=== PATIENT | female | born 1990 | race Caucasian/White ===

== ENCOUNTER 2017-01-05 12:42 | Emergency (ER) | payer SELFPAY ==
[~2017-01-05] VITALS: Ht 157.5 cm; Wt 68.0 kg
--- NOTE | 2017-01-05 12:47 | Emergency Room Report ---
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 Clinical Suspician of Infection? Mental Status: Sepsis Risk: Have you (or family members/close friends) recently traveled outside the [facility]? If Yes, where/when: Have you had exposure to infectious disease within the past month? TB? Other? Specify: Source patient, RN notes reviewed, EMS Exam Limitations no limitations Comment Pt found unresponsive by her Dad this morning and he did rescue breathing and by the time EMS arrived, she was responsive . They brought her to the ED and she refused an IV and she refused Narcan but says she took a $20 dose of heroin. She has been using drugs since she was 14 years old. Started with ETOH and then advanced to pain meds, methamphetamines and now IV heroin. She has had surgery on the left forearm because of infections from previous injections and she is also Hepatitis C positive and has not been treated. She says she wants to be admitted to [facility]. She has been in rehab twice in the past...once in [place] for about a month and once in [place] for about 7 months. She has an older brother and 2 older sisters who are drug free and she says she lives wherever she can find a place to lay her head. She is very drowsy but does answer questions appropriately and is willing to have blood and urine testing Cardiac Chest Pain Chest pain indicative of cardiac No ALLERGIES Coded Allergies: Penicillins (01/05/17) Home Medications Reported Medications No Known Home Medications History Medical History General Angina: No CT: No Hypertension? No Hyperlipidemia? No CHF? No COPD? No Asthma? No CVA? No Seizures? No Diabetes? No GB Disease: No MRSA? No TB? No Cancer? No Immunization Hx DT/Tetanus NOT SURE Surgical Hx Previous Surgery?Y L FOREARM ABCESS Social History Smoking Hx Packs/day < 1 Pack Alcohol Alcohol: Yes Review of Systems All Other Systems Reviewed and Negative Constitutional see HPI Psychiatric/Neurological see HPI Physical Exam Vital Signs Vital Signs Date Time Temp Pulse Resp B/P Pulse O2 O2 Flow FiO2 Ox Delivery Rate 01/05 1504 81 20 121/64 94 01/05 1426 79 20 127/72 97 01/05 1242 98.9 94 20 149/78 94 General Appearance no apparent distress, lethargic, drowsy but arouses and answers questions appropriately Respiratory Status No: respiratory distress. Lung Sounds bilateral: normal breath sounds. 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 No Results/Orders Laboratory Tests 01/05/17 1330: WBC 7.4, RBC 4.24, Hgb 12.9, Hct 38.7, MCV 91.3, RDW 13.4, Plt Count 245, MPV 8.6, Gran % 75.1, Gran # 5.6, Lymphocytes % 17.9, Monocytes % 4.3, Eosinophils % 2.2, Basophils % 0.5, Lymphocytes # 1.3, Monocytes # 0.3, Eosinophils # 0.2, Basophils # 0.0, PUBS MCHC 33.2, MCH 30.3 01/05/17 1310: Opiates Screen POSITIVE H, Urine Methadone Screen NEGATIVE, Barbiturates NEGATIVE, Phencyclidine Screen NEGATIVE, Amphetamines Screen NEGATIVE, Benzodiazepines Screen NEGATIVE, Cocaine Screen POSITIVE H, Marijuana (THC) Screen POSITIVE H, Urine Color YELLOW, Urine Appearance TURBID, Urine pH 7.0, Ur Specific [place] 1.025, Urine Protein 3+ H, Urine Ketones NEGATIVE, Urine Blood 3+ H, Urine Nitrate NEGATIVE, Urine Bilirubin NEGATIVE, Urine Urobilinogen 0.2, Ur Leukocyte Esterase NEGATIVE, Urine RBC 5-10, Urine WBC 5-10 , Ur Squamous Epith Cells 10-20, Urine Bacteria 4+, Urine Glucose NEGATIVE Current Medication Orders Sig/Je Start time Last Medication Dose Route Stop Time Status Admin Sodium Chloride 1,000 ML .STK-MED ONE 01/05 1502 DC IV Ondansetron HCl 4 MG ONCE ONE 01/05 1415 DC 01/05 IV 01/05 1416 1403 Ondansetron HCl 0 .STK-MED ONE 01/05 1357 DC .ROUTE Sodium Chloride 1,000 ML .STK-MED ONE 01/05 1355 DC IV Sodium Chloride 1,000 ML .Q1H1M 01/05 1330 DC 01/05 IV 01/05 1430 1401 Sodium Chloride 10 ML PRN PRN 01/05 1330 AC IV 01/06 1318 Naloxone HCl 2 MG ONCE ONE 01/05 1315 DC IV 01/05 1316 Sodium Chloride 10 ML PRN PRN 01/05 1315 AC 01/05 IV 01/06 1314 1402 Sodium Chloride 1,000 ML .Q1H1M 01/05 1315 DC 01/05 IV 01/05 1415 1503 Sodium Chloride 10 ML PRN PRN 01/05 1315 AC IV 01/06 1315 Orders Procedure Date/time Status IV SALINE LOCK 01/05 1318 Active URINALYSIS/COMPLETE 01/05 131 Complete SALICYLATE 01/05 131 Active URINE 01/05 131 Complete DRUG ABUSE SCREEN (10) 01/05 131 Complete CBC WITH AUTO DIFF 01/05 1318 Complete CHEM 12 PROFILE 01/05 131 Active ALCOHOL 01/05 131 Active Acetaminophen 01/05 131 Active CULTURE, URINE 01/05 131 Active Departure Departure Time of Disposition 1549 Disposition DC Home or Self Care(routine) Clinical Impression Primary Impression: Opioid abuse Secondary Impressions: Intrauterine Condition STABLE Referrals NO REFERRAL Patient Instructions DI for Opioid Addiction, Opioid Addiction Additional Instructions Pt being released from this facility to go to [facility] in [place] for further evaluation and hopefully placement Discharge Counseling Counseled pt/family regarding diagnosis, test results, home care, follow up needs Prescriptions Current Visit Scripts No Known Home Medications ED Critical Care Critical Care No If Critical Care minutes are documented, the time involved in the performance of seperately reportable procedures was not counted toward critical care time documented. I directly delivered medical care to this critically ill and/or injured patient. Timely evaluation and treatment was necessary to address the significant organ system(s) dysfunction present in this patient. at 1550
--- NOTE | 2017-01-05 12:47 | Emergency Room Report ---
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 Clinical Suspician of Infection? Mental Status: Sepsis Risk: Have you (or family members/close friends) recently traveled outside the [facility]? If Yes, where/when: Have you had exposure to infectious disease within the past month? TB? Other? Specify: Source patient, RN notes reviewed, EMS Exam Limitations no limitations Comment Pt found unresponsive by her Dad this morning and he did rescue breathing and by the time EMS arrived, she was responsive . They brought her to the ED and she refused an IV and she refused Narcan but says she took a $20 dose of heroin. She has been using drugs since she was 14 years old. Started with ETOH and then advanced to pain meds, methamphetamines and now IV heroin. She has had surgery on the left forearm because of infections from previous injections and she is also Hepatitis C positive and has not been treated. She says she wants to be admitted to [facility]. She has been in rehab twice in the past...once in [place] for about a month and once in [place] for about 7 months. She has an older brother and 2 older sisters who are drug free and she says she lives wherever she can find a place to lay her head. She is very drowsy but does answer questions appropriately and is willing to have blood and urine testing Cardiac Chest Pain Chest pain indicative of cardiac No ALLERGIES Coded Allergies: Penicillins (01/05/17) Home Medications Reported Medications No Known Home Medications History Medical History General Angina: No ME: No Hypertension? No Hyperlipidemia? No CHF? No COPD? No Asthma? No CVA? No Seizures? No Diabetes? No GB Disease: No MRSA? No TB? No Cancer? No Immunization Hx DT/Tetanus NOT SURE Surgical Hx Previous Surgery?Y L FOREARM ABCESS Social History Smoking Hx Packs/day < 1 Pack Alcohol Alcohol: Yes Review of Systems All Other Systems Reviewed and Negative Constitutional see HPI Psychiatric/Neurological see HPI Physical Exam Vital Signs Vital Signs Date Time Temp Pulse Resp B/P Pulse O2 O2 Flow FiO2 Ox Delivery Rate 01/05 1504 81 20 121/64 94 01/05 1426 79 20 127/72 97 01/05 1242 98.9 94 20 149/78 94 General Appearance no apparent distress, lethargic, drowsy but arouses and answers questions appropriately Respiratory Status No: respiratory distress. Lung Sounds bilateral: normal breath sounds. 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 No Results/Orders Laboratory Tests 01/05/17 1330: WBC 7.4, RBC 4.24, Hgb 12.9, Hct 38.7, MCV 91.3, RDW 13.4, Plt Count 245, MPV 8.6, Gran % 75.1, Gran # 5.6, Lymphocytes % 17.9, Monocytes % 4.3, Eosinophils % 2.2, Basophils % 0.5, Lymphocytes # 1.3, Monocytes # 0.3, Eosinophils # 0.2, Basophils # 0.0, PUBS MCHC 33.2, MCH 30.3 01/05/17 1310: Opiates Screen POSITIVE H, Urine Methadone Screen NEGATIVE, Barbiturates NEGATIVE, Phencyclidine Screen NEGATIVE, Amphetamines Screen NEGATIVE, Benzodiazepines Screen NEGATIVE, Cocaine Screen POSITIVE H, Marijuana (THC) Screen POSITIVE H, Urine Color YELLOW, Urine Appearance TURBID, Urine pH 7.0, Ur Specific [place] 1.025, Urine Protein 3+ H, Urine Ketones NEGATIVE, Urine Blood 3+ H, Urine Nitrate NEGATIVE, Urine Bilirubin NEGATIVE, Urine Urobilinogen 0.2, Ur Leukocyte Esterase NEGATIVE, Urine RBC 5-10, Urine WBC 5-10 , Ur Squamous Epith Cells 10-20, Urine Bacteria 4+, Urine Glucose NEGATIVE Current Medication Orders Sig/Je Start time Last Medication Dose Route Stop Time Status Admin Sodium Chloride 1,000 ML .STK-MED ONE 01/05 1502 DC IV Ondansetron HCl 4 MG ONCE ONE 01/05 1415 DC 01/05 IV 01/05 1416 1403 Ondansetron HCl 0 .STK-MED ONE 01/05 1357 DC .ROUTE Sodium Chloride 1,000 ML .STK-MED ONE 01/05 1355 DC IV Sodium Chloride 1,000 ML .Q1H1M 01/05 1330 DC 01/05 IV 01/05 1430 1401 Sodium Chloride 10 ML PRN PRN 01/05 1330 AC IV 01/06 1318 Naloxone HCl 2 MG ONCE ONE 01/05 1315 DC IV 01/05 1316 Sodium Chloride 10 ML PRN PRN 01/05 1315 AC 01/05 IV 01/06 1314 1402 Sodium Chloride 1,000 ML .Q1H1M 01/05 1315 DC 01/05 IV 01/05 1415 1503 Sodium Chloride 10 ML PRN PRN 01/05 1315 AC IV 01/06 1315 Orders Procedure Date/time Status IV SALINE LOCK 01/05 1318 Active URINALYSIS/COMPLETE 01/05 131 Complete SALICYLATE 01/05 131 Active URINE 01/05 131 Complete DRUG ABUSE SCREEN (10) 01/05 131 Complete CBC WITH AUTO DIFF 01/05 1318 Complete CHEM 12 PROFILE 01/05 131 Active ALCOHOL 01/05 131 Active Acetaminophen 01/05 131 Active CULTURE, URINE 01/05 131 Active Departure Departure Time of Disposition 1549 Disposition DC Home or Self Care(routine) Clinical Impression Primary Impression: Opioid abuse Secondary Impressions: Intrauterine Condition STABLE Referrals NO REFERRAL Patient Instructions DI for Opioid Addiction, Opioid Addiction Additional Instructions Pt being released from this facility to go to [facility] in [place] for further evaluation and hopefully placement Discharge Counseling Counseled pt/family regarding diagnosis, test results, home care, follow up needs Prescriptions Current Visit Scripts No Known Home Medications ED Critical Care Critical Care No If Critical Care minutes are documented, the time involved in the performance of seperately reportable procedures was not counted toward critical care time documented. I directly delivered medical care to this critically ill and/or injured patient. Timely evaluation and treatment was necessary to address the significant organ system(s) dysfunction present in this patient. at 1550
[2017-01-05 13:31] LABS: URINE BILIRUBIN - DIPSTICK NEGATIVE (NEG); URINE BLOOD 3+ (NEG)
[2017-01-05 13:42] LABS: AMPHETAMINES/METAMPHETAMINES NEGATIVE ng/mL (<1000)
[2017-01-05 14:09] LABS: HEMOGLOBIN 12.9 g/dL (12.2-16.2); LYMPH # 1.3 K/mm3 (0.7-4.5); LYMPH % 17.9 % (10-50.0)
[2017-01-05 15:58] VITALS: BP 121/64
--- OUTSIDE RECORDS SUMMARY | 2017-01-15 21:46 | External Medical Summary Rpt ---
Author Author , VANESSA MEDNEZ Address Unknown Phone Care Team Providers Care Rivet Maker Name Role Phone [facility], Unavailable Unavailable [facility] OLLIE SHEPHERD, Unavailable Unavailable OLLIE SHEPHERD [facility], Unavailable Unavailable Immediately [facility] [employer] [facility] Ada Cruz MD, Unavailable Unavailable Ada Cruz MD [facility] [employer] [facility], Unavailable Unavailable [facility], Unavailable Unavailable [facility] SAIMA MCCLENDON, Unavailable Unavailable SAIMA MCCLENDON . BESS Unavailable Unavailable [facility], Unavailable Unavailable [facility] GRANT PONCHO, PONCHO Unavailable Unavailable [employer], Unavailable Unavailable [employer] Purpose Continuity of Care Document - 04-20-2007 through 2016 Problems Code Diagnosis DOS Provider Status [id number] ANTEPARTUM 05-02-2016 [facility] OLVIN TRIMESTER O200 THREATENED 04-26-2016 [facility] 380.10 380.10 11-23-2012 [facility] EXTERNA [place]OS 03768 NAUSEA 12-31-2007 BERNIE MCCLENDON 27627 DIARRHEA 12-31-2007 SAIMA MCCLENDON 5589 OTH&UNSPEC 08-24-2007 CLEMENTE MCCLENDONFECTKYLE Petit [facility] ITIS&COLITI S 7242 LUMBAGO 08-24-2007 SAIMA MCCLENDON 72410 KASCHIN-BEC 07-30-2007 [facility] DISEASE [facility] SITES PSC [id number] EFFUSION OF 07-30-2007 [facility] JOINT 7295 PAIN IN 07-30-2007 [facility] SOFT [facility] TISSUES OF LIMB 9597 INJURY 07-30-2007 LUIS ANTONIOSTEFANIINI, OTHER&UNSPE JULIO CESAR CIFIED KNEE LEG ANKLE&FOOT 7821 RASH AND 06-17-2007 [facility] PSC NONSPECIFIC SKIN ERUPTION 7840 HEADACHE 06-17-2007 [facility] V154 PERS HX 06-06-2007 [facility]S [facility] 4658 ACUTE URIS 04-20-2007 HAKAN, OF OTHER JULIO CESAR MULTIPLE SITES Allergies, Adverse Reactions, Alerts Type Propensity to adverse reactions to drug Adverse Reaction to Substance Substance Reaction Severity Penicillin I-RASH Unknown Medications Na ND Rx Da Fi Fi Am Da Di Ph RX Ph St me C No te ll ll ou ys ag ar # ys at rm s nt no ma ic us Or Da si cy ia de te s n re d NE 24 08 0 No OM 20 -1 YC 80 9- Lo IN 63 20 ng -P 56 13 er OL 2 YM Ac YX ti IN ve -H C EA R TRAN SP TR 00 10 07 06 28 28 HO 97 No Ac I- 55 -1 -0 .0 PK 77 t ti SP 59 8- 3- 00 IN 76 Av ve RI 01 20 20 S ai NT [address] dunn EC 8 UG bl e TA CO BL ET IN C TR 00 10 05 05 28 28 HO 97 No Ac I- 55 -1 -2 .0 PK 77 t ti SP 59 8- 2- 00 IN 76 Av ve RI 01 20 20 S ai NT [address] dunn EC 8 UG bl e TA CO BL ET IN C TR 00 10 04 04 28 28 HO 97 No Ac I- 55 -1 -2 .0 PK 77 t ti SP 59 8- 4- 00 IN 76 Av ve RI 01 20 20 S ai NT [address] dunn EC 8 UG bl e TA CO BL ET IN C AL 24 03 04 00 24 6 HO 98 No Ac LE 38 -1 -1 .0 PK 22 t ti RG 50 2- 7- 00 IN 37 Av ve Y 46 20 20 S ai [address] dunn 2 UG bl MG e CO CA PS IN UL C E TR 00 10 04 03 28 28 HO 97 No Ac I- 55 -1 -1 .0 PK 77 t ti SP 59 8- 7- 00 IN 76 Av ve RI 01 20 20 S ai NT [address] dunn EC 8 UG bl e TA CO BL ET IN C TR 00 10 03 02 28 28 HO 97 No Ac I- 55 -1 -2 .0 PK 77 t ti SP 59 8- 6- 00 IN 76 Av ve RI 01 20 20 S ai NT [address] mona EC 8 UG bl e TA CO BL ET IN C 63 01 03 00 20 10 HO 98 No Ac 82 -1 -2 .0 PK 03 t ti 40 4- 5- 00 IN 31 Av ve 00 20 20 S ai [address] mona 0 UG bl e CO IN C AZ 50 01 03 00 6. 5 HO 98 No Ac IT 11 -1 -2 00 PK 03 t ti HR 10 4- 5- 0 IN 30 Av ve OM 78 20 20 S ai YC [address] mona IN 6 UG bl e 25 CO 0 MG IN C TA BL ET TR 00 10 03 01 28 28 HO 97 No Ac I- 55 -1 -2 .0 PK 77 t ti SP 59 8- 4- 00 IN 76 Av ve RI 01 20 20 S ai NT [address] mona EC 8 UG bl e TA CO BL ET IN C Vital Signs 11-23-2012 21:18 Name Value Interpretat Reference Comment ion Range Body 99.0 [degF] Temperature BP 57 mm[Hg] Diastolic BP Systolic 103 mm[Hg] Heart 81 /min Rate/Pulse O2% 100 % Respiratory 17 /min Rate 11-23-2012 21:10 Name Value Interpretat Reference Comment ion Range Body 99.0 [degF] Temperature BP 57 mm[Hg] Diastolic BP Systolic 103 mm[Hg] Heart 81 /min Rate/Pulse O2% 100 % Respiratory 17 /min Rate Results Labs Lab Lab Date Result Refere Interp Status Commen Order Detail nces retati t Range on C trach+GC DNA XXX PCR (01-06-2017 03:40) Bacteri Referen complet a XXX 017 ce ed Anaerob 03:40 range: e+Aerob No DNA e Cult for Neisser ia gonorrh oeae detecte d. Bacteri (NOTE) complet a XXX 017 ed Anaerob 03:40 e+Aerob e Cult Bacteri [id number] complet a XXX 017 09 ed Anaerob 03:40 negativ e+Aerob e e Cult (qualif ier value) SCT NGNEG NEGATIV E for Neisser ia gonorrh oeae DNA by nucleic acid amplifi cation. L Chlamydia DNA XXX Ql PCR (01-06-2017 03:40) Bacteri Referen complet a XXX 017 ce ed Anaerob 03:40 Range: e+Aerob No DNA e Cult for Chlamyd ia trachom atis plasmid detecte d. Bacteri (NOTE) complet a XXX 017 ed Anaerob 03:40 e+Aerob e Cult Bacteri [id number] complet a XXX 017 09 ed Anaerob 03:40 negativ e+Aerob e e Cult (qualif ier value) SCT CTNEG NEGATIV E for Chlamyd ia trachom atis plasmid by nucleic acid amplifi cation. L HGC Intact+B SerPl-aCnc (01-05-2017 20:04) HGC 92 <5 complet Intact+ 017 mIU/mL ed B 20:04 SerPl-a Cnc Drugs identified in Urine by Screen method (01-05-2017 13:10) Ampheta NEGATIV <1000 complet mine 017 E ed [Presen 13:10 ce] in Urine by Screen method 11-Hydr POSITIV <50 Abnorma complet oxy 017 E l ed delta-9 13:10 tetrahy drocann abinol [Presen ce] in Unspeci fied specime n Urinalysis dipstick W Reflex Microscopic panel in Urine (01-05-2017 13:10) Bacteri 4+ O complet a 017 ed [Presen 13:10 ce] in Urine sedimen t by Light microsc opy Erythro 5-10 0 complet cytes 017 ed [Presen 13:10 ce] in Urine sedimen t by Light microsc opy Epithel 10-20 0#/hp complet ial 017 f - ed cells.s 13:10 5#/hp quamous f [Presen ce] in Urine sedimen t by Microsc opy high power field Leukocy 5-10 O complet nimisha 017 wbc/hpf ed [#/volu 13:10 me] in Urine Urinalysis dipstick W Reflex Microscopic panel in Urine (01-05-2017 13:10) Appeara TURBID CLEAR complet nce of 017 ed Urine 13:10 Bilirub NEGATIV NEG complet in 017 E ed [Presen 13:10 ce] in Urine by Test strip Erythro 3+ NEG Abnorma complet cytes 017 l ed [Presen 13:10 ce] in Urine Color YELLOW YELLOW complet of 017 ed Urine 13:10 Ketones NEGATIV NEG complet 017 E ed [Presen 13:10 ce] in Urine by Automat ed test strip Mucus NEGATIV NEG complet [Presen 017 E ed ce] in 13:10 Urine sedimen t by Light microsc opy Nitrite NEGATIV NEG complet 017 E ed [Presen 13:10 ce] in Urine by Test strip Urobili 0.2 NEG complet nogen 017 ed [Presen 13:10 ce] in Urine by Test strip CHLAMYDIA AND GONORRHEA TESTING (01-26-2015 15:45) Chlamyd NEGATIV complet ia 015 E ed trachom 15:45 atis rRNA [Presen ce] in Unspeci fied specime n by Probe & target amplifi cation method Neisser NEGATIV complet ia 015 E ed gonorrh 15:45 oeae rRNA [Presen ce] in Unspeci fied specime n by Probe & target amplifi cation method CHLAMYDIA AND GONORRHEA TESTING (01-26-2015 15:45) COLLECT 01-26- AB complet OR 015 ed 15:45 ETHNICI 01-26-2 WHITE, complet TY 015 NON-HIS ed 15:45 PANIC KIT 01-26-2 complet EXPIRAT 015 5 ed ION 15:45 DATE SYMPTOM 01-26-2 YES complet S 015 ed 15:45 REASON 01-26-2 VOLUNTE complet FOR 015 ER/MEDI ed REQUEST 15:45 CESAR PROBLEM SPECIME 01-26- URINE complet N 015 ed SOURCE 15:45 PREGNAN --2 NO complet T 015 ed 15:45 CHART 01-26- NA complet NUMBER 015 ed 15:45 Chlamyd --2 Pending complet ia 015 ed trachom 15:45 atis rRNA [Presen ce] in Unspeci fied specime n by Probe & target amplifi cation method Neisser 01-26-2 Pending complet ia 015 ed gonorrh 15:45 oeae rRNA [Presen ce] in Unspeci fied specime n by Probe & target amplifi cation method Procedures Procedure DOS Code Location Performer Comment COLLECTIO [id number] [facility] N VENOUS 7 BESS BESS BLOOD [facility] VENIPUNCT URE GONADOTRO 51160 [facility] QUANTITAT RICHARD GONADOTRO 55893 [facility] PIN 7 [facility] CHORIONIC [facility] QUANTITAT RICHARD GONADOTRO 05365 [facility] PIN [address] [place] [address] INC CHORIONIC QUALITATI VE URNLS DIP 95444 HAKAN MCCLENDON 8 , ASIMA HARRELL STICK/TAB LET RGNT NON-AUTO W/O MICRSCP APPLICATI 44315 DAMARIS OCAMPO ON LONG 8 CO [facility] SPLINT THIGH ANKLE/TOE S RADIOLOGI 08392 GRAY Shabnam SHEPHERD EXAM 8 OLLIE S KNEE RADIOLOGY COMPLETE 4/MORE ASSOCIATE VIEWS S PSC RADIOLOGI 71776 DAMARIS Haque 8 CO [facility] ON KNEE 3 VIEWS Encounters Encounter Start End Date Code Location Performer Type Date [facility] - 7 7 BESS BAH T EMERGENCY [address]20 [place] 7 7 EMERGENCY DEPARTMEN T VISIT PHYSICIAN HIGH/URGE S NT SEVERITY [facility] ST[facility] - 7 7 BESS HERNANDEZ T Emergency AMY Cruz MD (ER) 3 20:42 3 21:19 [facility] OFFICE 00605 HAKAN DIAZ 8 8 , SAIMA HARRELL T VISIT 10 MINUTES OFFICE 81582 HAKAN DIAZ 8 8 , SAIMA HARRELL T VISIT 10 MINUTES OFFICE 75915 HAKAN MCCLENDON [facility] 8 8 , SAIMA Petit , SAIMA Petit T VISIT 10 MINUTES [facility]OSPITAL [facility] 96040 [facility] 8 8 CO T VISIT 5 HOSPITAL MINUTES OFFICE [address]2474 [facility] 8 [facility] 20 PSC MINUTES OFFICE 39548 HAKAN MCCLENDON [facility] 8 8 , SAIMA HARRELL T VISIT 10 MINUTES
--- OUTSIDE RECORDS SUMMARY | 2017-01-15 21:46 | External Medical Summary Rpt ---
Author Author , VANESSA MENDEZ Address Unknown Phone Care Team Providers Care C Consultant Name Role Phone [facility], Unavailable Unavailable [facility] OLLIE SHEPHERD, Unavailable Unavailable OLLIE SHEPHERD [facility], Unavailable Unavailable [facility] Ada Cruz MD, Unavailable Unavailable Ada Cruz MD [facility] [employer] [facility], Unavailable Unavailable [facility], Unavailable Unavailable [facility] SAIMA MCCLENDON, Unavailable Unavailable SAIMA MCCLENDON . BESS Unavailable Unavailable [facility]. [facility] [place], Unavailable Unavailable [facility] GRANT PON[place], PONCHO Unavailable Unavailable [employer], Unavailable Unavailable [employer] [employer] Purpose Continuity of Care Document - 04-20-2007 through 2016 Problems Code Diagnosis DOS Provider Status O4691 ANTEPARTUM 05-02-2016 [facility] FIRST OLVIN TRIMESTER O200 THREATENED 04-26-2016 [facility] [place] [facility] [place] 380.10 380.10 11-23-2012 [facility] EXTERNA NOS 12796 NAUSEA 12-31-2007 BERNIE MCCLENDON 94065 DIARRHEA 12-31-2007 SAIMA MCCLENDON 5589 OTH&UNSPEC 08-24-2007 CLEMENTE MCCLENDONFECTKYLE Petit [facility]ENTER ITIS&COLITI S 7242 LUMBAGO 08-24-2007 SAIMA MCCLENDON 35816 KASCHIN-BEC 07-30-2007 [facility] DISEASE RADIOLOGY MULT[facility]LE ASSOCIATES SITES PSC 73857 EFFUSION OF 07-30-2007 [facility] JOINT 7295 PAIN IN 07-30-2007 [facility] SOFT [facility] TISSUES OF LIMB 9597 INJURY 07-30-2007 LUIS ANTONIOSTEFANIINI, OTHER&UNSPE JULIO CESAR CIFIED KNEE LEG ANKLE&FOOT 7821 RASH AND 06-17-2007 [facility] PSC NONSPECIFIC SKIN ERUPTION 7840 HEADACHE 06-17-2007 [facility] V154 PERS HX 06-06-2007 DEPT FOR PSYCHOLOGIC [...] ed Anaerob 03:40 e+Aerob e Cult Bacteri [id number] complet a XXX 017 09 ed Anaerob [...] ed Anaerob 03:40 e+Aerob e Cult Bacteri [id number] complet a XXX 017 09 ed Anaerob [...] Procedure DOS Code Location Performer Comment COLLECTIO [address] [facility] N VENOUS 7 BESS BESS BLOOD [facility] VENIPUNCT URE GONADOTRO [address] [facility] PIN [facility] CH[facility]ION[facility] QUANTITAT RICHARD GONADOTRO [address] [facility] PIN 7 [facility] CHORIONIC [facility]ARY MARY QUANTITAT RICHARD GONADOTRO 53859 [facility] PIN [address] [place] [address] INC CHORIONIC QUALITATI VE URNLS DIP 96177 HAKAN MCCLENDON 8 , SAIMA HARRELL STICK/TAB LET RGNT NON-AUTO W/O MICRSCP APPLICATI 23103 [facility] OCAMPO ON LONG 8 CO [facility] SPLINT THIGH ANKLE/TOE S RADIOLOGI 48066 [place] Shabnam SHEPHERD EXAM 8 OLLIE S KNEE RADIOLOGY COMPLETE 4/MORE ASSOCIATE VIEWS S PSC RADIOLOGI 37912 DAMARIS Haque 8 CO [facility] ON KNEE 3 VIEWS Encounters Encounter Start End Date Code Location Performer Type Date [facility] - 7 7 BESS BAH T EMERGENCY 09501 [place] 7 7 EMERGENCY DEPARTMEN T VISIT PHYSICIAN HIGH/URGE S NT SEVERITY [facility] - 7 7 BESS HERNANDEZ T Emergency AMY Cruz MD (ER) 3 20:42 3 21:19 [facility] OFFICE 02730 HAKAN DIAZ 8 8 , SAIMA HARRELL T VISIT 10 MINUTES OFFICE 26986 HAKAN DIAZ 8 8 , SAIMA HARRELL T VISIT 10 MINUTES OFFICE 37528 HAKAN MCCLENDON [facility] 8 8 , SAIMA Petit , SAIMA Petit T VISIT 10 MINUTES HOSPITAL [facility] - 8 8 [facility] 62159 DAMARIS [facility] 8 8 CO T VISIT 5 HOSPITAL MINUTES OFFICE 33026 [place] [facility] 8 [facility] 20 PSC MINUTES OFFICE 86849 HAKAN MCCLENDON [facility] 8 8 , SAIMA HARRELL T VISIT 10 MINUTES
--- OUTSIDE RECORDS SUMMARY | 2017-01-15 21:47 | External Medical Summary Rpt ---
Author Author , VANESSA MENDEZ Address Unknown Phone [email or web address] Immunization Name Date Rout CVX Reac Dose Comm Prov Is Faci e tion ent ider Refu lity Give sed n Hep 07-2 8 999 Hist H191 No H191 B, 5-20 oric ped/ 03 al adol Info rmat ion - Sour ce Unsp ecif ied Td 07-2 9 999 Hist H191 No H191 (moo 5-20 oric lt), 03 al Info adso rmat rbed ion - Sour ce Unsp ecif ied Hep 07-0 8 999 Hist H191 No H191 B, 9- oric ped/ 98 al adol Info rmat ion - Sour ce Unsp ecif ied Hep 03-0 8 999 Hist H191 No H191 B, 4-19 oric ped/ 98 al adol Info rmat ion - Sour ce Unsp ecif ied MMR 03-0 3 999 Hist H191 No H191 4-19 oric 98 al Info rmat ion - Sour ce Unsp ecif ied MMR 08-1 3 999 Hist H191 No H191 9- oric 96 al Info rmat ion - Sour ce Unsp ecif ied DTaP 08-1 107 999 Hist H191 No H191 , UF 9- oric 96 al Info rmat ion - Sour ce Unsp ecif ied Rudy 08-1 2 999 Hist H191 No H191 o-OP 9- oric V 96 al Info rmat ion - Sour ce Unsp ecif ied
--- OUTSIDE RECORDS SUMMARY | 2017-01-15 21:47 | External Medical Summary Rpt ---
Author Author , VANESSA MENDEZ Address Unknown Phone [email or web address] Care Team Providers Care Operations Welder Name Role Phone [facility], Unavailable Unavailable [facility] OLLIE SHEPHERD, Unavailable Unavailable OLLIE SHEPHERD [facility], Unavailable Unavailable [facility] [employer] [facility], Unavailable Unavailable [facility] [place] [facility], Unavailable Unavailable [facility] SAIMA MCCLENDON, Unavailable Unavailable SAIMA MCCLENDON [facility] Unavailable Unavailable [facility], Unavailable [facility]available [facility] PONCHO, PONCHO Unavailable Unavailable [employer], Unavailable Unavailable [employer] [employer] Purpose Continuity of Care Document - 04-20-2007 through 2016 Problems Code Diagnosis DOS Provider Status [id number] ANTEPARTUM 05-02-2016 [facility] FIRST OLVIN TRIMESTER O200 THREATENED 04-26-2016 [facility] 19191 NAUSEA 12-31-2007 BERNIE MCCLENDON 81067 DIARRHEA 12-31-2007 SAIMA MCCLENDON 5589 OTH&UNSPEC 08-24-2007 HAKAN NONINFECTIO SAIMA Petit US [facility]STROENTER ITIS&COLITI S 7242 LUMBAGO 08-24-2007 SAIMA MCCLENDON 62474 KASCHIN-BEC 07-30-2007 [facility] DISEASE RADIOLOGY MULTIPLE ASSOCIATES SITES [facility] 90723 EFFUSION OF 07-30-2007 [facility] JOINT 7295 PAIN IN 07-30-2007 [facility] TISSUES OF [place] 9597 INJURY 07-30-2007 DEJA MCCLENDON&LUIS Petit CIFIED KNEE LEG ANKLE&FOOT 7821 RASH AND 06-17-2007 [facility] PSC NONSPECIFIC SKIN ERUPTION 7840 HEADACHE 06-17-2007 [facility] PSC V154 PERS HX 06-06-2007 DEPT FOR PSYCHOLOGIC PUBLIC [facility] AL TRAUMA PRS [facility] 4658 ACUTE URIS 04-20-2007 HAKAN, OF OTHER JULIO CESAR MULTIPLE SITES Medications Na ND Rx Da Fi Fi Am Da Di Ph RX Ph St me C No te ll ll ou ys ag ar # ys at rm s nt no ma ic us Or Da si cy ia de te s n re d TR 00 10 07 06 28 28 [...] ET IN C TR 00 10 04 03 28 28 [...] IN UL C E TR 00 10 03 02 28 28 HO 97 No Ac I- 55 -1 -2 .0 PK 77 t ti SP 59 8- 6- 00 IN 76 Av ve RI 01 20 20 S ai NT [address] dunn EC 8 UG bl e TA CO BL ET IN C AZ 50 01 03 00 6. 5 HO 98 No Ac IT 11 -1 -2 00 PK 03 t ti HR 10 4- 5- 0 IN 30 Av ve OM 78 20 20 S ai YC [address] dunn IN 6 UG bl e 25 CO 0 MG IN C TA BL ET 63 01 03 00 20 10 HO 98 No Ac 82 -1 -2 .0 PK 03 t ti 40 4- 5- 00 IN 31 Av ve 00 20 20 S ai [address] dunn 0 UG bl e CO IN C TR 00 10 03 01 28 28 HO 97 No Ac I- 55 -1 -2 .0 PK 77 t ti SP 59 8- 4- 00 IN 76 Av ve RI 01 20 20 S ai NT [address] dunn EC 8 UG bl e TA CO BL ET IN C Procedures Procedure DOS Code Location Performer Comment COLLECTIO 17219 [facility] N VENOUS 7 [facility] VENIPUNCT URE GONADOTRO 09171 [facility] PIN 7 BESS BESS [facility] QUANTITAT RICHARD GONADOTRO 85828 [facility] PIN 7 [facility] CHORIONIC [facility]ARY MARY QUANTITAT RICHARD GONADOTRO 19039 [facility] PIN 8 [employer] [facility] CHORIONIC QUALITATI VE URNLS DIP 53046 HAKAN MCCLENDON 8 , JULIO CESAR , JULIO CESAR STICK/TAB LET RGNT NON-AUTO W/O MICRSCP APPLICATI 13891 [facility] OCAMPO ON LONG 8 CO [facility] SPLINT THIGH ANKLE/TOE S RADIOLOGI 13364 Shabnam SINGER EXAM 8 OLLIE S KNEE RADIOLOGY COMPLETE 4/MORE ASSOCIATE VIEWS S [facility] RADIOLOGI 79649 [facility] Haque 8 CO [facility] ON KNEE 3 VIEWS Encounters Encounter Start End Date Code Location Performer Type Date [facility] [place] [address] 7 BESS BAH T EMERGENCY 23128 [facility] 7 7 EMERGENCY DEPARTMEN T VISIT PHYSICIAN HIGH/URGE S NT SEVERITY [facility] 7 7 BESS HERNANDEZ T OFFICE 06738 HAKAN DIAZ 8 8 , SAIMA HARRELL T VISIT 10 MINUTES OFFICE 66461 HAKAN DIAZ 8 8 , SAIMA HARRELL T VISIT 10 MINUTES OFFICE 76041 HAKAN MCCLENDON [facility] 8 8 , SAIMA HARRELL T VISIT 10 MINUTES HOSPITAL [facility] - 8 8 CO [facility] T OFFICE 96253 DAMARIS [facility] 8 8 CO T VISIT 5 HOSPITAL MINUTES OFFICE 80511 [place] [facility] 8 8 [facility] 20 [facility] MINUTES OFFICE 37148 HAKAN MCCLENDON [facility] 8 8 , SAIMA HARRELL T VISIT 10 MINUTES
--- OUTSIDE RECORDS SUMMARY | 2017-01-15 21:47 | External Medical Summary Rpt ---
Author Author , VANESSA MENDEZ Address Unknown Phone [email or web address] Immunization Name Date Rout CVX Reac Dose [...]
--- OUTSIDE RECORDS SUMMARY | 2017-01-15 21:47 | External Medical Summary Rpt ---
Author Author , VANESSA MENDEZ Address Unknown Phone [email or web address] Care Team Providers Care Director Of Enrollment Name Role Phone [facility], Unavailable Unavailable [facility] OLLIE SHEPHERD, Unavailable Unavailable OLLIE SHEPHERD [facility], Unavailable Unavailable [facility] [employer], Unavailable Unavailable [facility] [employer], Unavailable Unavailable [facility] SAIMA MCCLENDON, Unavailable Unavailable SAIMA MCCLENDON [facility] Unavailable Unavailable [facility]. [facility], Unavailable Unavailable [facility] PONCHO, PONCHO Unavailable Unavailable [employer], Unavailable Unavailable [employer] [employer] Purpose Continuity of Care Document - 04-20-2007 through 2016 Problems Code Diagnosis DOS Provider Status O4691 ANTEPARTUM 05-02-2016 [facility] FIRST OLVIN TRIMESTER O200 THREATENED 04-26-2016 [facility] 53114 NAUSEA 12-31-2007 BERNIE MCCLENDON 76616 DIARRHEA 12-31-2007 SAIMA MCCLENDON 5589 OTH&UNSPEC 08-24-2007 HAKAN NONINFECTIO SAIMA Petit US [facility]OENTER ITIS&COLITI S 7242 LUMBAGO 08-24-2007 ASIMA MCCLENDON 17854 KASCHIN-BEC 07-30-2007 [facility] DISEASE RADIOLOGY MULTIPLE ASSOCIATES SITES [facility] 50233 EFFUSION OF 07-30-2007 [facility] JOINT 7295 PAIN IN 07-30-2007 [facility] TISSUES OF [place] 9597 INJURY 07-30-2007 DEJA MCCLENDON&LUIS Petit CIFIED KNEE LEG ANKLE&FOOT 7821 RASH AND 06-17-2007 [facility] PSC NONSPECIFIC SKIN ERUPTION 7840 HEADACHE 06-17-2007 [facility] PSC V154 PERS HX 06-06-2007 DEPT FOR [...] Procedure DOS Code Location Performer Comment COLLECTIO [address] [facility] N VENOUS 7 [facility] VENIPUNCT URE [facility]ONADOTRO [address] [facility] PIN 7 BESS BESS [facility] QUANTITAT RICHARD GONADOTRO [address] [facility] PIN 7 [facility]ORION[facility] QUANTITAT RICHARD GONADOTRO 44415 [facility] PIN 8 [facility] CHORIONIC QUALITATI VE URNLS DIP 14357 HAKAN MCCLENDON 8 , JULIO CESAR , JULIO CESAR STICK/TAB LET RGNT NON-AUTO W/O MICRSCP APPLICATI 36435 [facility] OCAMPO ON LONG 8 CO [facility] SPLINT THIGH ANKLE/TOE S RADIOLOGI 08904 Shabnam SINGER EXAM 8 OLLIE S KNEE RADIOLOGY COMPLETE 4/MORE ASSOCIATE VIEWS S [facility] RADIOLOGI 35093 DAMARIS Haque 8 CO CO [facility] ON KNEE 3 VIEWS Encounters Encounter Start End Date Code Location Performer Type Date [facility] [place] [address] 7 BESS BAH T EMERGENCY 58744 [facility] 7 7 EMERGENCY DEPARTMEN T VISIT PHYSICIAN HIGH/URGE S NT SEVERITY [facility] 7 7 BESS HERNANDEZ T OFFICE 78075 HAKAN DIAZ 8 8 , SAIMA HARRELL T VISIT 10 MINUTES OFFICE 94408 HAKAN DIAZ 8 8 , SAIMA HARRELL T VISIT 10 MINUTES OFFICE 09577 HAKAN MCCLENDON [facility] 8 8 , SAIMA HARRELL T VISIT 10 MINUTES HOSPITAL [facility] - 8 8 CO [facility] T OFFICE 26413 DAMARIS [facility] 8 8 CO T VISIT 5 HOSPITAL MINUTES OFFICE 22801 [place] [facility] 8 8 [facility] 20 [facility] MINUTES OFFICE 33319 HAKAN MCCLENDON [facility] 8 8 , SAIMA HARRELL T VISIT 10 MINUTES
--- OUTSIDE RECORDS SUMMARY | 2017-01-15 21:48 | External Medical Summary Rpt ---
Author Author [employer], [employer] Organization [employer] Address Unknown Phone Unavailable Results CBC W Auto Differential panel in Blood Observa Value Referen Units Interpr Notes Date tion ce etation Range Basophils 0 - 0.2 K/MM3 Normal No Jan 05 informati 2016 1:30 [#/volume on in PM ] in source Blood by data Automated count Basophils 0.1 - 2.0 % Normal No Jan 05 informati 2016 1:30 leukocyte on in PM s in source Blood by data Automated count Eosinophi 0.0 - 0.4 K/mm3 Normal No Jan 05 ls informati 2016 1:30 [#/volume on in PM ] in source Blood by data Automated count Eosinophi 0.1 - % Normal No Jan 05 ls/100 12.0 informati 2016 1:30 leukocyte on in PM s in source Blood by data Automated count Granulocy 1.8 - 7.8 K/mm3 Normal No Jan 05 sudhakar informati 2016 1:30 [#/volume on in PM ] in source Blood by data Automated count Granulocy 37.0 - % Normal No Jan 05 sudhakar/100 80.0 informati 2016 1:30 leukocyte on in PM s in source Blood by data Automated count Hematocri 37.0 - % Normal No Jan 05 t [Volume 47.0 informati 2016 1:30 on in PM Fraction] source of Blood data Hemoglobi 12.2 - g/dL Normal No Jan 05 n 16.2 informati 2016 1:30 [Mass/vol on in PM ume] in source Blood data Lymphocyt 0.7 - 4.5 K/mm3 Normal No Jan 05 es informati 2016 1:30 [#/volume on in PM ] in source Unspecifi data ed specimen by Automated count Lymphocyt 10 - 50.0 % Normal No Jan 05 es informati 2016 1:30 [#/volume on in PM ] in source Unspecifi data ed specimen by Automated count Erythrocy 27 - 31.2 pg Normal No Jan 05 te mean informati 2016 1:30 corpuscul on in PM ar source hemoglobi data n [Entitic mass] Erythrocy 31.8 - g/dl Normal No Jan 05 te mean 35.4 informati 2016 1:30 corpuscul on in PM ar source hemoglobi data n concentra tion [Mass/vol ume] by Automated count Erythrocy 82.2 - fl Normal No Jan 05 te mean 97.8 informati 2016 1:30 corpuscul on in PM ar volume source [Entitic data volume] by Automated count Monocytes 0.1 - 1.0 K/mm3 Normal No Jan 1 informati 2016 1:30 [#/volume on in PM ] in source Blood by data Automated count Monocytes 1.7 - 9.3 % Normal No Jan 05 /100 informati 2016 1:30 leukocyte on in PM s in source Blood by data Automated count Platelet 7.4 - fl Normal No Jan 05 mean 10.4 informati 2016 1:30 volume on in PM [Entitic source volume] data in Blood by Automated count Platelets 142 - 424 K/mm3 Normal No Jan 05 informati 2016 1:30 [#/volume on in PM ] in source Blood data Erythrocy 4.2 - 5.4 M/mm3 Normal No Jan 05 sudhaakr informati 2016 1:30 [#/volume on in PM ] in source Amniotic data fluid Erythrocy 11.5 - % Normal No Jan 05 te 17.5 informati 2016 1:30 distribut on in PM ion width source [Entitic data volume] by Automated count Leukocyte 4.8 - K/MM3 Normal No Jan 05 s 10.8 informati 2016 1:30 [#/volume on in PM ] in source Blood data Drugs identified in Urine by Screen method Observa Value Referen Units Interpr Notes Date tion ce etation Range Positive urine drug screen samples are stored for 7 days. Contact the Lab if confirmation of positives is needed. Ampheta NEGATIV <1000 ng/mL No No Jan 05 mine E informa informa 2016 [Presen tion in tion in 1:10 PM ce] in source source Urine data data by Screen method Barbitura <200 ng/mL No No Jan 05 sudhakar informati informati 2016 1:10 [Mass/vol on in on in PM ume] in source source Urine by data data Screen method Benzodiaz 200 ng/mL ng/mL No No Jan 05 epines informati informati 2016 1:10 [Mass/vol on in on in PM ume] in source source Serum or data data Plasma by Screen method Cocaine <300 ng/g High This is Jan 05 [Mass/vol an 2016 1:10 ume] in UNCONFIRM PM Unspecifi ED ed result. specimen This result is for medicalpu rposes and/or treatment only. Methadone <300 ng/mL No No Jan 05 informati informati 2016 1:10 [Mass/vol on in on in PM ume] in source source Unspecifi data data ed specimen Opiates <300 ng/mL High This is Jan 05 [Mass/vol an 2016 1:10 ume] in UNCONFIRM PM Unspecifi ED ed result. specimen This result is for medicalpu rposes and/or treatment only. Phencycli <25 ng/mL No No Jan 05 dine informati informati 2016 1:10 [Mass/vol on in on in PM ume] in source source Unspecifi data data ed specimen 11-Hydr POSITIV <50 ng/mL Abnorma This is Jan 05 oxy E l an 2017 delta-9 UNCONFI 1:10 PM RMED tetrahy result. drocann This abinol result [Presen is for ce] in medical Unspeci purpose fied s specime and/or n treatme nt only. Urinalysis dipstick W Reflex Microscopic panel in Urine Observa Value Referen Units Interpr Notes Date tion ce etation Range Appeara TURBID CLEAR No No No Jan 05 nce of informa informa informa 2016 Urine tion in tion in tion in 1:10 PM source source source data data data Bacteri 4+ O No No No Jan 05 a informa informa informa 2016 [Presen tion in tion in tion in 1:10 PM ce] in source source source Urine data data data sedimen t by Light microsc opy Bilirub NEGATIV NEG No No No Jan 05 in E informa informa informa 2016 [Presen tion in tion in tion in 1:10 PM ce] in source source source Urine data data data by Test strip Erythro 3+ NEG No Abnorma No Jan 05 cytes informa l informa 2016 [Presen tion in tion in 1:10 PM ce] in source source Urine data data Color YELLOW YELLOW No No No Jan 05 of informa informa informa 2017 Urine tion in tion in tion in 1:10 PM source source source data data data Glucose NEG No No No Jan 05 [Mass/vol informati informati informati 2017 1:10 ume] in on in on in on in PM Urine by source source source Test data data data strip Ketones NEGATIV NEG mg/dL No No Jan 05 E informa informa 2016 [Presen tion in tion in 1:10 PM ce] in source source Urine data data by Automat ed test strip Mucus NEGATIV NEG No No No Jan 05 [Presen E informa informa informa 2016 ce] in tion in tion in tion in 1:10 PM Urine source source source sedimen data data data t by Light microsc opy Nitrite NEGATIV NEG No No No Jan 05 E informa informa informa 2016 [Presen tion in tion in tion in 1:10 PM ce] in source source source Urine data data data by Test strip pH of 5.0 - 8.5 No Normal No Oct Urine informati informati 2017 1:10 on in on in PM source source data data Protein NEG mg/dL High No Jan 05 [Mass/vol informati 2017 1:10 ume] in on in PM Urine by source Automated data test strip Erythro 5-10 0 rbc/hpf No No Jan 05 cytes informa informa 2016 [Presen tion in tion in 1:10 PM ce] in source source Urine data data sedimen t by Light microsc opy Specific 1.005 - No Normal No Oct gravity 1.030 informati informati 2017 1:10 of Urine on in on in PM source source data data Epithel 10-20 0 - 5 #/hpf No No Jan 05 ial informa informa 2017 cells.s tion in tion in 1:10 PM quamous source source data data [Presen ce] in Urine sedimen t by Microsc opy high power field Urobili 0.2 NEG E.U./dL No No Oct 1 nogen informa informa 2017 [Presen tion in tion in 1:10 PM ce] in source source Urine data data by Test strip Leukocy [5 O wbc/hpf No No Oct 1 sudhakar wbc/hpf informa informa 2017 [#/volu ; 10 tion in tion in 1:10 PM me] in wbc/hpf source source Urine ] data data Urinalysis dipstick W Reflex Microscopic panel in Urine Observa Value Referen Units Interpr Notes Date tion ce etation Range Appeara TURBID CLEAR No No No Jan 1 nce of informa informa informa 2016 Urine tion in tion in tion in 1:10 PM source source source data data data Bilirub NEGATIV NEG No No No Jan 05 in E informa informa informa 2016 [Presen tion in tion in tion in 1:10 PM ce] in source source source Urine data data data by Test strip Erythro 3+ NEG No Abnorma No Jan 05 cytes informa l informa 2016 [Presen tion in tion in 1:10 PM ce] in source source Urine data data Color YELLOW YELLOW No No No Jan 05 of informa informa informa 2016 Urine tion in tion in tion in 1:10 PM source source source data data data Glucose NEG No No No Jan 05 [Mass/vol informati informati informati 2017 1:10 ume] in on in on in on in PM Urine by source source source Test data data data strip Ketones NEGATIV NEG mg/dL No No Jan 05 E informa informa 2016 [Presen tion in tion in 1:10 PM ce] in source source Urine data data by Automat ed test strip Mucus NEGATIV NEG No No No Jan 05 [Presen E informa informa informa 2016 ce] in tion in tion in tion in 1:10 PM Urine source source source sedimen data data data t by Light microsc opy Nitrite NEGATIV NEG No No No Jan 05 E informa informa informa 2016 [Presen tion in tion in tion in 1:10 PM ce] in source source source Urine data data data by Test strip pH of 5.0 - 8.5 No Normal No Oct 1 Urine informati informati 2017 1:10 on in on in PM source source data data Protein NEG mg/dL High No Oct 1 [Mass/vol informati 2017 1:10 ume] in on in PM Urine by source Automated data test strip Specific 1.005 - No Normal No Jan 05 gravity 1.030 informati informati 2017 1:10 of Urine on in on in PM source source data data Urobili 0.2 NEG E.U./dL No No Jan 05 nogen informa informa 2017 [Presen tion in tion in 1:10 PM ce] in source source Urine data data by Test strip Choriogonadotropin.beta subunit [Units] in 24 hour Urine Observa Value Referen Units Interpr Notes Date tion ce etation Range Choriogon NEG No No No Jan 05 adotropin informati informati informati 2017 1:10 .beta on in on in on in PM subunit source source source [Units] data data data in 24 hour Urine hCG Quant Observa Value Referen Units Interpr Notes Date tion ce etation Range Send results to Dr Matt Benson hCG 175 No mIU/mL No No May 02 Quant informa informa informa 2017 tion in tion in tion in 11:31 source source source AM data data data ABORh Observa Value Referen Units Interpr Notes Date tion ce etation Range ABORh O POS No No No No Apr 30 Int informa informa informa informa 2017 tion in tion in tion in tion in 12:36 source source source source AM data data data data hCG Quant Observa Value Referen Units Interpr Notes Date tion ce etation Range hCG 163 No mIU/mL No No Apr 29 Quant informa informa informa 2017 tion in tion in tion in 9:24 PM source source source data data data Auto Diff Observa Value Referen Units Interpr Notes Date tion ce etation Range Neutrop 64.5 No % No No Apr 29 hils informa informa informa 2016 [#/volu tion in tion in tion in 9:06 PM me] in source source source Blood data data data by Automat ed count Lymphoc 25.7 No % No No Apr 29 ytes informa informa informa 2016 [#/volu tion in tion in tion in 9:06 PM me] in source source source Blood data data data by Automat ed count Monocyt 6.0 No % No No Apr 29 es informa informa informa 2016 [#/volu tion in tion in tion in 9:06 PM me] in source source source Blood data data data by Automat ed count Eos 2.8 No % No No Apr 29 Percent informa informa informa 2017 tion in tion in tion in 9:06 PM source source source data data data Baso 1.0 No % No No Apr 29 Percent informa informa informa 2017 tion in tion in tion in 9:06 PM source source source data data data Neut# 4.2 2.2 - x10(3)/ No No Apr 29 4.8 mcL informa informa 2017 tion in tion in 9:06 PM source source data data Lymph# 1.7 1.3 - x10(3)/ No No Apr 29 2.9 mcL informa informa 2017 tion in tion in 9:06 PM source source data data Thurston# 0.4 0.3 - x10(3)/ No No Apr 29 0.8 mcL informa informa 2017 tion in tion in 9:06 PM source source data data Eos# 0.2 0.0 - x10(3)/ No No Apr 29 0.2 mcL informa informa 2017 tion in tion in 9:06 PM source source data data Baso# 0.1 0.0 - x10(3)/ No No Apr 29 0.1 mcL informa informa 2017 tion in tion in 9:06 PM source source data data CBC Observa Value Referen Units Interpr Notes Date tion ce etation Range LEUKOCY 6.5 4.8 - x10(3)/ No No Apr 29 SUDHAKAR 10.8 mcL informa informa 2017 tion in tion in 9:06 PM source source data data Erythro 4.38 4.20 - x10(6)/ No No Apr 29 cytes 5.40 mcL informa informa 2016 [#/volu tion in tion in 9:06 PM me] in source source Blood data data by Automat ed count Hemoglo 13.6 12.0 - gm/dL No No Apr 29 bin 16.0 informa informa 2016 [Mass/v tion in tion in 9:06 PM olume] source source in data data Blood Hematoc 39.6 37.0 - % No Apr 29 rit 47.0 informa informa 2016 [Volume tion in tion in 9:06 PM source source Fractio data data n] of Blood by Automat ed count Erythro 90.5 80.0 - fL No Apr 29 cyte 99.0 informa informa 2017 mean tion in tion in 9:06 PM corpusc source source ular data data volume [Entiti c volume] by Automat ed count Erythro 31.0 27.0 - pg No No Apr 29 cyte 31.0 informa informa 2016 mean tion in tion in 9:06 PM corpusc source source ular data data hemoglo bin [Entiti c mass] by Automat ed count Erythro 34.3 32.0 - gm/dL No No Apr 29 cyte 36.0 informa informa 2016 mean tion in tion in 9:06 PM corpusc source source ular data data hemoglo bin concent ration [Mass/v olume] by Automat ed count Erythro 14.3 11.5 - % No No Apr 29 cyte 15.5 informa informa 2016 distrib tion in tion in 9:06 PM ution source source width data data [Ratio] by Automat ed count Platele 234 130 - x10(3)/ No No Apr 29 ts 400 mcL informa informa 2016 [#/volu tion in tion in 9:06 PM me] in source source Blood data data by Automat ed count MPV 9.3 7.4 - fL No No Apr 29 10.4 informa informa 2017 tion in tion in 9:06 PM source source data data Chlamyd/GC TMA Observa Value Referen Units Interpr Notes Date tion ce etation Range Chlamyd Negativ No No No No Apr 30 ia e informa informa informa informa 2017 trachom tion in tion in tion in tion in 1:03 PM atis source source source source data data data data Neisser Negativ No No No Testing Apr 30 ia e informa informa informa 2017 gonorrh tion in tion in tion in methodo 1:03 PM oeae source source source logy is data data data transcr iption mediate d amplifi cation (TMA) using the Aptima Combo 2 assay from [employer] /[employer] be.\.br \A negativ e result does not complet mike rule out a Chlamyd ia trachom atis or Neisser ia gonorrh oeae infecti on due to potenti al inhibit ors or levels present below the limit of detecti on by this assay. Results are depende nt on proper collect ion and transpo rt of specime n. This test is indicat ed for medical purpose s only and should not be used for legal or forensi c purpose s.\.br\ \.br\Th e perform ance charact eristic s of this test were validat ed by [facility] are laborat ory. This assay is FDA cleared to test the followi ng specime ns: clinici an-bonita ected endocer vical, vaginal and male urethra l swab specime ns, patient collect ed vaginal specime ns within a clinic setting , Thin Prep Specime ns in Preserv Cyt Solutio n, and first-s tream, unprese rved male urine specime ns. Testing on female urine is not FDA approve d by this methodo logy, but has been develop ed and validat ed by the [facility] are laborat ory. Detaile d methodo logy is availab le upon request . Ag Trich Observa Value Referen Units Interpr Notes Date tion ce etation Range Trichom Negativ No No No No Apr 30 onas Ag e informa informa informa informa 2016 tion in tion in tion in tion in 1:07 AM source source source source data data data data UA Observa Value Referen Units Interpr Notes Date ti ce etation Range UA Yellow No No No No Apr 29 Color informa informa informa informa 2016 tion in tion in tion in tion in 9:23 PM source source source source data data data data UA Clear Clear No No No Apr 29 Appear informa informa informa 2016 tion in tion in tion in 9:23 PM source source source data data data UA Negativ Negativ No No No Apr 29 Glucose e e informa informa informa 2016 tion in tion in tion in 9:23 PM source source source data data data UA Negativ Negativ No No No Apr 29 Ketones e e informa informa informa 2016 tion in tion in tion in 9:23 PM source source source data data data UA Trace-i Negativ No Abnorma No Apr 29 Blood ntact e informa l informa 2016 tion in tion in 9:23 PM source source data data UA pH 7.0 5.0 - No No Referen Apr 29 8.0 informa informa ce 2017 tion in tion in range 9:23 PM source source valid data data for random specime ns only. UA Negativ Negativ No No No Apr 29 Protein e e informa informa informa 2017 tion in tion in tion in 9:23 PM source source source data data data UA 0.2 <=1 No No No Apr 29 Urobili E.U./dL E.U./dL informa informa informa 2017 nogen tion in tion in tion in 9:23 PM source source source data data data UA Negativ Negativ No No No Apr 29 Nitrite e e informa informa informa 2017 tion in tion in tion in 9:23 PM source source source data data data UA Leuk Negativ Negativ No No No Apr 29 Est e e informa informa informa 2017 tion in tion in tion in 9:23 PM source source source data data data UA Spec 1.020 1.001 - No No ReferApr 29 Grav 1.035 informa informa ce 2017 tion in tion in range 9:23 PM source source valid data data for random specime ns only. UA WBC 0-2 0 - 4 /HPF No No Apr 29 informa informa 2017 tion in tion in 9:23 PM source source data data UA RBC 3-5 0 - 3 /HPF Abnorma No Apr 29 l informa 2016 tion in 9:23 PM source data UA 1+ No No No No Apr 29 Squam informa informa informa informa 2017 Epi tion in tion in tion in tion in 9:23 PM source source source source data data data data UA Trace No No No No Apr 29 Mucous informa informa informa informa 2017 tion in tion in tion in tion in 9:23 PM source source source source data data data data hCG Quant Observa Value Referen Units Interpr Notes Date ti ce etation Range To be performed on 04/26/16. Result to patient's OB physician hCG 89 No mIU/mL No No Apr 26 Quant informa informa informa 2017 tion in tion in tion in 1:37 PM source source source data data data Drg Sc Rap Observa Value Referen Units Interpr Notes Date ti ce etation Range Tricycl Absent 300 No No No Apr 24 ic ng/mL informa informa informa 2017 Rapid tion in tion in tion in 9:00 PM source source source data data data Barbitu Absent 200 No No No Apr 24 rate ng/mL informa informa informa 2017 Rapid tion in tion in tion in 9:00 PM source source source data data data Methado Absent 300 No No No Apr 24 ne ng/mL informa informa informa 2017 Rapid tion in tion in tion in 9:00 PM source source source data data data Benzodi Absent 300 No No No Apr 24 azepine ng/mL informa informa informa 2017 s Rapid tion in tion in tion in 9:00 PM source source source data data data Cannabi Absent 50 No No No Apr 24 noid ng/mL informa informa informa 2017 Rapid tion in tion in tion in 9:00 PM source source source data data data Opiate Absent 300 No No No Apr 24 Rapid ng/mL informa informa informa 2017 tion in tion in tion in 9:00 PM source source source data data data Ampheta Absent 1000 No No No Apr 24 mine ng/mL informa informa informa 2017 Rapid tion in tion in tion in 9:00 PM source source source data data data Cocaine Absent 300 No No No Apr 24 Rapid ng/mL informa informa informa 2017 tion in tion in tion in 9:00 PM source source source data data data Propoxy Absent 300 No No No Apr 24 phene ng/mL informa informa informa 2016 Rapid tion in tion in tion in 9:00 PM source source source data data data Methamp Absent 1500 No No No Apr 24 hetamin ng/mL informa informa informa 2016 e Rapid tion in tion in tion in 9:00 PM source source source data data data Procedu These No No No No Apr 24 re Note drug informa informa informa informa 2017 Rapid classes tion in tion in tion in tion in 9:00 PM have source source source source been data data data data screene d by immunoa ssay and are for medical purpose s only. Results should not be used for non-med ical purpose s. These results are only valid for urine specime ns. Any contami nation with vaginal pool/am niotic fluid could cause erroneo us results . If confirm ation is desired , please place a separat e order for each drug confirm ation. Specime ns will be saved for 3 s days should additio nal orders/ testing be desired . UA Observa Value Referen Units Interpr Notes Date tion ce etation Range UA Yellow No No No No Apr 24 Color informa informa informa informa 2017 tion in tion in tion in tion in 8:43 PM source source source source data data data data UA Clear Clear No No No Apr 24 Appear informa informa informa 2017 tion in tion in tion in 8:43 PM source source source data data data UA Negativ Negativ No No No Apr 24 Glucose e e informa informa informa 2016 tion in tion in tion in 8:43 PM source source source data data data UA Negativ Negativ No No No Apr 24 Ketones e e informa informa informa 2016 tion in tion in ti in 8:43 PM source source source data data data UA Negativ Negativ No No No Apr 24 Blood e e informa informa informa 2017 tion in tion in tion in 8:43 PM source source source data data data UA pH 6.0 5.0 - No No Referen Apr 24 8.0 informa informa ce 2016 tion in tion in range 8:43 PM source source valid data data for random specime ns only. UA Negativ Negativ No No No Apr 24 Protein e e informa informa informa 2016 tion in tion in tion in 8:43 PM source source source data data data UA 0.2 <=1 No No No Apr 24 Urobili E.U./dL E.U./dL informa informa informa 2016 nogen tion in tion in tion in 8:43 PM source source source data data data UA Negativ Negativ No No No Apr 24 Nitrite e e informa informa informa 2017 tion in tion in tion in 8:43 PM source source source data data data UA Leuk Negativ Negativ No No No Apr 24 Est e e informa informa informa 2016 tion in tion in tion in 8:43 PM source source source data data data UA Spec 1.020 1.001 - No No Referen Apr 24 Grav 1.035 informa informa ce 2017 tion in tion in range 8:43 PM source source valid data data for random specime ns only. Chlamyd/GC TMA Observa Value Referen Units Interpr Notes Date ti ce etation Range Chlamyd Negativ No No No No Apr 25 ia e informa informa informa informa 2017 trachom tion in tion in tion in tion in 6:38 PM atis source source source source data data data data Neisser Negativ No No No Testing Apr 25 ia e informa informa informa 2017 gonorrh tion in tion in tion in methodo 6:38 PM oeae source source source logy is data data data transcr iption mediate d amplifi cation (TMA) using the Aptima Combo 2 assay from [employer] /[employer] be.\.br \A negativ e result does not complet mike rule out a Chlamyd ia trachom atis or Neisser ia gonorrh oeae infecti on due to potenti al inhibit ors or levels present below the limit of detecti on by this assay. Results are depende nt on proper collect ion and transpo rt of specime n. This test is indicat ed for medical purpose s only and should not be used for legal or forensi c purpose s.\.br\ \.br\Th e perform ance charact eristic s of this test were validat ed by [facility] are laborat ory. This assay is FDA cleared to test the followi ng specime ns: clinici an-bonita ected endocer vical, vaginal and male urethra l swab specime ns, patient collect ed vaginal specime ns within a clinic setting , Thin Prep Specime ns in Preserv Cyt Solutio n, and first-s tream, unprese rved male urine specime ns. Testing on female urine is not FDA approve d by this methodo logy, but has been develop ed and validat ed by the [facility] are laborat ory. Detaile d methodo logy is availab le upon request . Lipase Observa Value Referen Units Interpr Notes Date ti ce etation Range Lipase 41 13 - 60 IU/L No No Apr 24 Lvl informa informa 2017 tion in tion in 8:39 PM source source data data Alc-Med Observa Value Referen Units Interpr Notes Date tion ce etation Range Alcohol 118 <=10 mg/dL High No Apr 24 informa 2016 Medical tion in 8:39 PM source data hCG Quant Observa Value Referen Units Interpr Notes Date tion ce etation Range hCG 128 No mIU/mL No No Apr 24 Quant informa informa informa 2017 tion in tion in tion in 8:36 PM source source source data data data Ag Trich Observa Value Referen Units Interpr Notes Date tion ce etation Range Trichom Negativ No No No No Apr 24 onas Ag e informa informa informa informa 2017 tion in tion in tion in tion in 8:33 PM source source source source data data data data Auto Diff Observa Value Referen Units Interpr Notes Date tion ce etation Range Neutrop 63.6 No % No No Apr 24 hils informa informa informa 2016 [#/volu tion in tion in tion in 8:26 PM me] in source source source Blood data data data by Automat ed count Lymphoc 29.1 No % No No Apr 24 ytes informa informa informa 2016 [#/volu tion in tion in tion in 8:26 PM me] in source source source Blood data data data by Automat ed count Monocyt 4.5 No % No No Apr 24 es informa informa informa 2016 [#/volu tion in tion in tion in 8:26 PM me] in source source source Blood data data data by Automat ed count Eos 1.0 No % No No Apr 24 Percent informa informa informa 2017 tion in tion in tion in 8:26 PM source source source data data data Baso 1.8 No % No No Apr 24 Percent informa informa informa 2017 tion in tion in tion in 8:26 PM source source source data data data Neut# 4.2 1.8 - x10(3)/ No No Apr 24 7.7 mcL informa informa 2017 tion in tion in 8:26 PM source source data data Lymph# 1.9 0.6 - x10(3)/ No No Apr 24 4.8 mcL informa informa 2017 tion in tion in 8:26 PM source source data data [place]# 0.3 0.0 - x10(3)/ No No Apr 24 1.3 [facility] informa informa 2017 tion in tion in 8:26 PM source source data data Eos# 0.1 0.0 - x10(3)/ No No Apr 24 0.5 [facility] informa informa 2017 tion in tion in 8:26 PM source source data data Baso# 0.1 0.0 - x10(3)/ No No Apr 24 0.2 [facility] informa informa 2017 tion in tion in 8:26 PM source source data data CBC Observa Value Referen Units Interpr Notes Date tion ce etation Range LEUKOCY 6.6 4.0 - x10(3)/ No No Apr 24 SUDHAKAR 11.0 [facility] informa informa 2017 tion in tion in 8:26 PM source source data data Erythro 4.83 3.80 - x10(6)/ No No Apr 24 cytes 5.10 [facility] informa informa 2016 [#/volu tion in tion in 8:26 PM me] in source source Blood data data by Automat ed count Hemoglo 14.6 12.0 - gm/dL No No Apr 24 bin 15.6 informa informa 2016 [Mass/v tion in tion in 8:26 PM olume] source source in data data Blood Hematoc 43.7 35.7 - % No No Apr 24 rit 45.9 informa informa 2016 [Volume tion in tion in 8:26 PM source source Fractio data data n] of Blood by Automat ed count Erythro 90.6 82.5 - fL No No Apr 24 cyte 99.8 informa informa 2016 mean tion in tion in 8:26 PM corpusc source source ular data data volume [Entiti c volume] by Automat ed count Erythro 30.3 27.0 - pg No No Apr 24 cyte 34.3 informa informa 2016 mean tion in tion in 8:26 PM corpusc source source ular data data hemoglo bin [Entiti c mass] by Automat ed count Erythro 33.5 32.1 - gm/dL No No Apr 24 cyte 35.3 informa informa 2017 mean tion in tion in 8:26 PM corpusc source source ular data data hemoglo bin concent ration [Mass/v olume] by Automat ed count Erythro 14.3 11.5 - % No No Apr 24 cyte 15.0 informa informa 2017 distrib tion in tion in 8:26 PM ution source source width data data [Ratio] by Automat ed count [place] 253 144 - x10(3)/ No No Apr 24 ts 423 mcL informa informa 2016 [#/volu tion in tion in 8:26 PM me] in source source Blood data data by Automat ed count MPV 9.2 6.8 - fL No No Apr 24 10.8 informa informa 2016 tion in tion in 8:26 PM source source data data Auto Diff Observa Value Referen Units Interpr Notes Date tion ce etation Range Neutrop 86.0 No % No No Jun 04 hils informa informa informa 2016 [#/volu tion in tion in tion in 5:02 AM me] in source source source Blood data data data by Automat ed count Lymphoc 5.6 No % No No Jun 04 ytes informa informa informa 2016 [#/volu tion in tion in tion in 5:02 AM me] in source source source Blood data data data by Automat ed count Monocyt 6.9 No % No No Jun 04 es informa informa informa 2016 [#/volu tion in tion in tion in 5:02 AM me] in source source source Blood data data data by Automat ed count Eos 1.1 No % No No Jun 04 Percent informa informa informa 2016 tion in tion in tion in 5:02 AM source source source data data data Baso 0.4 No % No No Jun 04 Percent informa informa informa 2016 tion in tion in tion in 5:02 AM source source source data data data Neut# 14.2 1.8 - x10(3)/ High No Jun 04 7.7 mcL informa 2016 tion in 5:02 AM source data Lymph# 0.9 0.6 - x10(3)/ No No Jun 04 4.8 mcL informa informa 2016 tion in tion in 5:02 AM source source data data [place]# 1.1 0.0 - x10(3)/ No No Feb 28 1.3 mcL informa informa 2016 tion in tion in 5:02 AM source source data data Eos# 0.2 0.0 - x10(3)/ No No Feb 28 0.5 mcL informa informa 2016 tion in tion in 5:02 AM source source data data Baso# 0.1 0.0 - x10(3)/ No No Feb 28 0.2 mcL informa informa 2016 tion in tion in 5:02 AM source source data data Diff Observa Value Referen Units Interpr Notes Date tion ce etation Range Neutrop 8 0 - 10 % No No Feb 28 hils.ba informa informa 2016 nd tion in tion in 5:02 AM form/10 source source 0 data data leukocy sudhakar in Blood by Manual count CBC Observa Value Referen Units Interpr Notes Date tion ce etation Range LEUKOCY 16.5 4.0 - x10(3)/ High No Feb 28 SUDHAKAR 11.0 mcL informa 2015 tion in 4:46 AM source data Erythro 4.17 3.80 - x10(6)/ No No Feb 28 cytes 5.10 mcL informa informa 2016 [#/volu tion in tion in 4:46 AM me] in source source Blood data data by Automat ed count Hemoglo 12.6 12.0 - gm/dL No No Feb 28 bin 15.6 informa informa 2016 [Mass/v tion in tion in 4:46 AM olume] source source in data data Blood Hematoc 38.2 35.7 - % No No Feb 28 rit 45.9 informa informa 2016 [Volume tion in tion in 4:46 AM source source Fractio data data n] of Blood by Automat ed count Erythro 91.5 82.5 - fL No No Feb 28 cyte 99.8 informa informa 2016 mean tion in tion in 4:46 AM corpusc source source ular data data volume [Entiti c volume] by Automat ed count Erythro 30.3 27.0 - pg No No Feb 28 cyte 34.3 informa informa 2016 mean tion in tion in 4:46 AM corpusc source source ular data data hemoglo bin [Entiti c mass] by Automat ed count Erythro 33.1 32.1 - gm/dL No No Jun 04 cyte 35.3 informa informa 2016 mean tion in tion in 4:46 AM corpusc source source ular data data hemoglo bin concent ration [Mass/v olume] by Automat ed count Erythro 13.3 11.5 - % No No Jun 04 cyte 15.0 informa informa 2016 distrib tion in tion in 4:46 AM ution source source width data data [Ratio] by Automat ed count Platele 231 144 - x10(3)/ No No Jun 04 ts 423 mcL informa informa 2016 [#/volu tion in tion in 4:46 AM me] in source source Blood data data by Automat ed count MPV 9.1 6.8 - fL No Jun 04 10.8 informa informa 2016 tion in tion in 4:46 AM source source data data XR RADIUS ULNA LEFT AP AND LATERAL Observa Value Referen Units Interpr Notes Date tion ce etation Range XR No No No No Jun 04 RADIUS informa informa informa informa 2016 ULNA tion in tion in tion in tion in 4:19 AM LEFT AP source source source source AND data data data data LATERAL \.br\ 4:19 AM\.br\ History : 24 years .Female . -CELLUL ITIS.\. br\\.br \IMPRES SILVIA: Subcuta neous soft tissue edema. No soft tissue gas or\.br\ radiopa que\.br \foreig n body. No osseous abnorma lity.\. br\ CHLAMYDIA AND GONORRHEA TESTING Observa Value Referen Units Interpr Notes Date tion ce etation Range COLLECT AB No No No No Jan 26 OR informa informa informa informa 2014 tion in tion in tion in tion in 3:45 PM source source source source data data data data ETHNICI WHITE, No No No No Jan 26 TY NON-HIS informa informa informa informa 2015 PANIC tion in tion in tion in tion in 3:45 PM source source source source data data data data KIT No No No No Jan 26 EXPIRAT 5 informa informa informa informa 2015 ION tion in tion in tion in tion in 3:45 PM DATE source source source source data data data data SYMPTOM YES No No No No Jan 26 S informa informa informa informa 2015 tion in tion in tion in tion in 3:45 PM source source source source data data data data REASON VOLUNTE No No No No Jan 26 FOR ER/MEDI informa informa informa informa 2015 REQUEST CESAR tion in tion in tion in tion in 3:45 PM PROBLEM source source source source data data data data SPECIME URINE No No No No Jan 26 N informa informa informa informa 2015 SOURCE tion in tion in tion in tion in 3:45 PM source source source source data data data data PREGNAN NO No No No No Jan 26 T informa informa informa informa 2015 tion in tion in tion in tion in 3:45 PM source source source source data data data data CHART NA No No No No Jan 26 NUMBER informa informa informa informa 2015 tion in tion in tion in tion in 3:45 PM source source source source data data data data Chlamyd NEGATIV No No No NEGATIV Jan 26 ia E informa informa informa E 2015 trachom tion in tion in tion in RESULT= 3:45 PM atis source source source WITHIN rRNA data data data NORMAL [Presen ce] in LIMITSP Unspeci OSITIVE fied specime RESULT= n by Probe & ABNORMA target LEQUIVO CESAR amplifi RESULT= cation method INDETER MINATEU NSATISF ACTORY RESULT= INVALID Neisser NEGATIV No No No NEGATIV Jan 26 ia E informa informa informa E 2015 gonorrh tion in tion in tion in RESULT= 3:45 PM oeae source source source WITHIN rRNA data data data NORMAL [Presen ce] in LIMITSP Unspeci OSITIVE fied specime RESULT= n by Probe & ABNORMA target LEQUIVO CESAR amplifi RESULT= cation method INDETER MINATEU NSATISF ACTORY RESULT= INVALID THE APTIMA COMBO 2 ASSAY IS NOT INTENDE D FOR THE EVALUAT ION OF SUSPECT EDSEXUA L ABUSE OR FOR OTHER MEDICO- LEGAL INDICAT IONS. FOR THOSE PATIENT S FORWHOM A FALSE POSITIV E RESULT MAY HAVE ADVERSE PSYCHO- SOCIAL IMPACT, THE CDCRECO MMENDS RETESTI NG.\.br \This report contain s patient informa tion that must be protect ed in accorda nce with the Health Insuran ce Portabi lity and Account ability Act. CHLAMYDIA AND GONORRHEA TESTING Observa Value Referen Units Interpr Notes Date tion ce etation Range COLLECT AB No No No No Jan 26 OR informa informa informa informa 2015 tion in tion in tion in tion in 3:45 PM source source source source data data data data ETHNICI WHITE, No No No No Jan 26 TY NON-HIS informa informa informa informa 2015 PANIC tion in tion in tion in tion in 3:45 PM source source source source data data data data KIT No No No No Jan 26 EXPIRAT 5 informa informa informa informa 2015 ION tion in tion in tion in tion in 3:45 PM DATE source source source source data data data data SYMPTOM YES No No No No Jan 26 S informa informa informa informa 2015 tion in tion in tion in tion in 3:45 PM source source source source data data data data REASON VOLUNTE No No No No Jan 26 FOR ER/MEDI informa informa informa informa 2015 REQUEST CESAR tion in tion in tion in tion in 3:45 PM PROBLEM source source source source data data data data SPECIME URINE No No No No Jan 26 N informa informa informa informa 2015 SOURCE tion in tion in tion in tion in 3:45 PM source source source source data data data data PREGNAN NO No No No No Jan 26 T informa informa informa informa 2015 tion in tion in tion in tion in 3:45 PM source source source source data data data data CHART NA No No No No Jan 26 NUMBER informa informa informa informa 2015 tion in tion in tion in tion in 3:45 PM source source source source data data data data Chlamyd Pending No No No No Jan 26 ia informa informa informa informa 2015 trachom tion in tion in tion in tion in 3:45 PM atis source source source source rRNA data data data data [Presen ce] in Unspeci fied specime n by Probe & target amplifi cation method Neisser Pending No No No \.br\Jan 26 ia informa informa informa is 2015 gonorrh tion in tion in tion in report 3:45 PM oeae source source source contain rRNA data data data s [Presen patient ce] in Unspeci informa fied tion specime that n by must be Probe & target protect ed in amplifi accorda cation nce method with the Health Insuran ce Portabi lity and Account ability Act.
--- OUTSIDE RECORDS SUMMARY | 2017-01-15 21:48 | External Medical Summary Rpt ---
[...] - 5.4 M/mm3 Normal No Jan 05 sudhakar informati 2016 [...] in 9:06 PM source source data data [place]# 0.4 0.3 - x10(3)/ No No Apr [...] using the Aptima Combo 2 assay from [employer].\.br \A negativ e result does not [...] of this test were validat ed by [facility] are laborat ory. This assay is FDA [...] develop ed and validat ed by the [facility] are laborat ory. Detaile d methodo logy [...] using the Aptima Combo 2 assay from [employer].\.br \A negativ e result does not [...] of this test were validat ed by [facility] are laborat ory. This assay is FDA [...] develop ed and validat ed by the [facility] are laborat ory. Detaile d methodo logy [...] in 8:26 PM source source data data [place]# 0.3 0.0 - x10(3)/ No No Apr 24 1.3 [facility] informa informa 2017 tion in tion in 8:26 PM source source data data Eos# 0.1 0.0 - x10(3)/ No No Apr 24 0.5 [facility] informa informa 2017 tion in tion in 8:26 PM source source data data Baso# 0.1 0.0 - x10(3)/ No No Apr 24 0.2 [facility] informa informa 2017 tion in tion in 8:26 PM source source data data CBC Observa Value Referen Units Interpr Notes Date tion ce etation Range LEUKOCY 6.6 4.0 - x10(3)/ No No Apr 24 SUDHAKAR 11.0 [facility] informa informa 2017 tion in tion in 8:26 PM source source data data Erythro 4.83 3.80 - x10(6)/ No No Apr 24 cytes 5.10 [facility] informa informa 2016 [#/volu tion in [...] in 5:02 AM source source data data [place]# 1.1 0.0 - x10(3)/ No No Feb [...]
== END 2017-01-05 16:00 | disposition home or self-care (01) ==
LOC: ER 12:42
PROVIDERS: General Practice
DX: T40.1X1A Poisoning by heroin, accidental (unintentional), initial encounter (principal); Z32.01 Encounter for pregnancy test, result positive; Z88.0 Allergy status to penicillin; F10.10 Alcohol abuse, uncomplicated; F17.210 Nicotine dependence, cigarettes, uncomplicated; B18.2 Chronic viral hepatitis C